=== PATIENT | female | born 1965 | race Caucasian/White ===

== ENCOUNTER 2024-05-14 07:00 | Emergency (ER) | payer SELFPAY ==
[~2024-05-14] VITALS: Ht 165.1 cm; Wt 70.0 kg
[2024-05-14 07:10] VITALS: O2SAT 96
[2024-05-14 08:44] VITALS: BP 128/80; PULSE 95; RESP 16; TEMP 36.5; O2SAT 97
== END 2024-05-14 08:46 | disposition home or self-care (01) ==
LOC: ER 07:00
DX: S09.90XA Unspecified injury of head, initial encounter (principal); F10.90 Alcohol use, unspecified, uncomplicated; R73.09 Other abnormal glucose; V89.2XXA Person injured in unspecified motor-vehicle accident, traffic, initial encounter; Y93.89 Activity, other specified; Y92.89 Other specified places as the place of occurrence of the external cause; Y99.8 Other external cause status; Y90.9 Presence of alcohol in blood, level not specified
CPT/HCPCS: 82962; 99284